=== PATIENT | female | born 2000 | race Caucasian/White ===

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

== ENCOUNTER 2020-09-01 14:30 | Emergency (ER) | payer MEDICAID ==
[~2020-09-01] VITALS: Ht 170.2 cm; Wt 69.5 kg
[2020-09-01 15:01] LABS: BASOPHILS % (AUTO) 0.4 % (0-1); EOSINOPHILS % (AUTO) 0.7 % (0-6); HEMATOCRIT 39.2 % (35.0-45.0); HEMOGLOBIN 13.3 g/dl (12.0-16.0); LYMPHOCYTES # (AUTO) 0.9 X10'3 (1.1-4.8); LYMPHOCYTES % (AUTO) 16.1 % (21-51); MEAN CORPUSCULAR HEMOGLOBIN 28.5 PG (27.0-31.0); MEAN CORPUSCULAR HGB CONC 33.9 g/dL (33.0-36.5); MEAN CORPUSCULAR VOLUME 84.1 FL (78-98); MONOCYTES # (AUTO) 0.3 X10'3 (0-0.9); MONOCYTES % (AUTO) 6.4 % (2-12); NEUTROPHILS # (AUTO) 4.2 X10'3 (1.8-7.7); NEUTROPHILS % (AUTO) 76.4 % (42-75); PLATELET COUNT 273 X10'3 (140-440); RED BLOOD COUNT 4.66 X10'6 (4.20-5.60); RED CELL DISTRIBUTION WIDTH 12.8 % (11.5-14.5); WHITE BLOOD COUNT 5.5 X10'3 (4.5-11.0)
[2020-09-01 15:23] LABS: ALANINE AMINOTRANSFERASE 24 U/L (12-78); ALBUMIN 3.9 G/DL (3.4-5.0); ALBUMIN/GLOBULIN RATIO 1.1 (1.1-1.5); ALKALINE PHOSPHATASE 56 IU/L (46-116); ANION GAP 10 (8-16); ASPARTATE AMINO TRANSFERASE 16 U/L (10-37); BILIRUBIN,TOTAL 0.3 MG/DL (0.1-1.0); BLOOD UREA NITROGEN 11 MG/DL (7-18); BUN/CREATININE RATIO 12.8 (6.6-38.0); CALCIUM 8.9 MG/DL (8.5-10.1); CHLORIDE 106 MMOL/L (99-107); CREATININE 0.86 MG/DL (0.40-0.90); GLUCOSE 113 MG/DL (70-104); POTASSIUM 3.8 MMOL/L (3.5-5.1); SODIUM 141 MMOL/L (135-145); TOTAL CARBON DIOXIDE 24.6 MMOL/L (24-32); TOTAL PROTEIN 7.6 G/DL (6.4-8.2); eGFR 83 ML/MIN
[2020-09-01 15:43] LABS: CLARITY,URINE SLIGHTLY CLOUDY (Clear); GLUCOSE, URINE NEGATIVE (Neg); KETONES,URINE 15 mg/dl (Neg); LEUKOCYTE ESTERASE ,URINE NEGATIVE (Neg); NITRITES, URINE NEGATIVE (Neg); OCCULT BLOOD,URINE NEGATIVE (Neg); PROTEIN,URINE NEGATIVE (Neg)
[2020-09-01 15:44] LABS: COLOR,URINE DARK YELLOW (Yellow); UA COLLECTION TYPE CLN CATCH MIDSTREAM
[2020-09-01 15:44] LABS: URINE HCG NEGATIVE (NEG)
[2020-09-01 15:48] LABS: WBC,URINE 0-4 /HPF (0-4)
[2020-09-01 15:49] LABS: BACTERIA,URINE 1+ /HPF (Neg); MUCUS STRANDS MODERATE /LPF (Neg); RBC,URINE 0-2 /HPF (0-2); SQUAMOUS EPITHELIAL CELL,UR MANY /LPF (FEW)
[2020-09-01 16:03] VITALS: BP 124/77
== END 2020-09-01 16:05 | disposition home or self-care (01) ==
LOC: ER 14:30
DX: R55 Syncope and collapse (principal); R42 Dizziness and giddiness; F41.9 Anxiety disorder, unspecified; F32.9 Major depressive disorder, single episode, unspecified
CPT/HCPCS: 36415; 80053; 81001; 81025; 85025; 93005; 99284

== ENCOUNTER 2021-06-22 09:36 | Emergency (ER) | payer MEDICAID ==
[~2021-06-22] VITALS: Ht 170.2 cm; Wt 72.7 kg
[2021-06-22] MEDS ORDERED: diphenhydrAMINE 25mg capsule PO ONE (11:50)
[2021-06-22 12:52] VITALS: BP 110/63
== END 2021-06-22 13:40 | disposition home or self-care (01) ==
LOC: ER 09:37
DX: T78.40XA Allergy, unspecified, initial encounter (principal); F41.9 Anxiety disorder, unspecified; F32.9 Major depressive disorder, single episode, unspecified; F12.10 Cannabis abuse, uncomplicated; Z88.8 Allergy status to other drugs, medicaments and biological substances
CPT/HCPCS: 93005; 99283; Q0163

== ENCOUNTER 2022-02-27 17:10 | Emergency (ER) | payer MEDICAID ==
[~2022-02-27] VITALS: Ht 170.2 cm; Wt 81.8 kg
[2022-02-27 18:29] VITALS: BP 119/73
[2022-02-27 19:27] LABS: URINE HCG NEGATIVE (NEG)
[2022-02-27 19:30] LABS: CLARITY,URINE SLIGHTLY CLOUDY (Clear); COLOR,URINE YELLOW (Yellow); GLUCOSE, URINE NEGATIVE (Neg); KETONES,URINE NEGATIVE (Neg); LEUKOCYTE ESTERASE ,URINE NEGATIVE (Neg); NITRITES, URINE NEGATIVE (Neg); OCCULT BLOOD,URINE TRACE-INTACT (Neg); PH,URINE 6.5 (4.8-8.0); PROTEIN,URINE NEGATIVE (Neg); UROBILINOGEN,URINE 0.2 E.U/dL (0.2-1.0)
[2022-02-27 19:35] LABS: UA COLLECTION TYPE CLN CATCH MIDSTREAM
[2022-02-27] MEDS ORDERED: meclizine 12.5mg tablet PO ONE (19:35)
[2022-02-27 19:44] LABS: BACTERIA,URINE 1+ /HPF (Neg); MUCUS STRANDS FEW /LPF (Neg); SQUAMOUS EPITHELIAL CELL,UR MANY /LPF (FEW); TRANSITIONAL EPI CELLS,URINE FEW /HPF
== END 2022-02-27 20:35 | disposition home or self-care (01) ==
LOC: ER 17:10
DX: R42 Dizziness and giddiness (principal); F31.9 Bipolar disorder, unspecified; F12.10 Cannabis abuse, uncomplicated; Z88.5 Allergy status to narcotic agent
CPT/HCPCS: 81001; 81025; 99283; J8597

== ENCOUNTER 2022-09-04 17:36 | Emergency (ER) | payer MEDICAID ==
[~2022-09-04] VITALS: Ht 170.2 cm; Wt 91.8 kg
[2022-09-04 18:09] VITALS: BP 125/82
[2022-09-04 18:39] LABS: COLOR,URINE YELLOW (Yellow); GLUCOSE, URINE NEGATIVE (Neg); KETONES,URINE NEGATIVE (Neg); LEUKOCYTE ESTERASE ,URINE NEGATIVE (Neg); NITRITES, URINE NEGATIVE (Neg); OCCULT BLOOD,URINE SMALL (Neg); PROTEIN,URINE NEGATIVE (Neg); UROBILINOGEN,URINE 0.2 E.U/dL (0.2-1.0)
[2022-09-04 18:41] LABS: URINE HCG NEGATIVE (NEG)
[2022-09-04 18:45] LABS: CLARITY,URINE SLIGHTLY CLOUDY (Clear); UA COLLECTION TYPE CLN CATCH MIDSTREAM
[2022-09-04 18:50] LABS: BACTERIA,URINE NONE SEEN /HPF (Neg); MUCUS STRANDS NONE SEEN /LPF (Neg); SQUAMOUS EPITHELIAL CELL,UR FEW /LPF (FEW); WBC,URINE 0-4 /HPF (0-4)
== END 2022-09-04 19:47 | disposition home or self-care (01) ==
LOC: ER 17:38
DX: R39.89 Other symptoms and signs involving the genitourinary system (principal); F12.90 Cannabis use, unspecified, uncomplicated; Z88.8 Allergy status to other drugs, medicaments and biological substances
CPT/HCPCS: 81001; 81025; 99283

== ENCOUNTER 2022-12-04 21:30 | Emergency (ER) | payer MEDICAID ==
[~2022-12-04] VITALS: Ht 170.2 cm; Wt 90.0 kg
[2022-12-04 21:37] VITALS: TEMP 98
[2022-12-04] MEDS ORDERED: dexamethasone sod phosphate 10mg/ml inj PO STA (21:46)
[2022-12-04] MEDS ORDERED: diphenhydrAMINE 25mg capsule PO STA (21:46)
[2022-12-04] MEDS ORDERED: diphenhydrAMINE 25 MG/10 ML UD oral solution PO ONE (22:25)
[2022-12-04] MEDS ORDERED: famotidine 20mg tablet PO ONE (22:25)
[2022-12-04] MEDS ORDERED: epiNEPHrine 1 mg/ml inj SQ ONE (22:45)
--- NOTE | 2022-12-04 22:48 | NUR ---
rash is spreading, hives to lower back now. Moved pt to room 15 on monitors, Corine Fontaine RN SBAR
[2022-12-04 22:55] VITALS: BP 102/60; PULSE 68; RESP 18; O2SAT 98
--- NOTE | 2022-12-04 23:21 | NUR ---
ERRYTHEMA AND URTICARIA DECREASED POST EPINEPHRINE.
[2022-12-04] MEDS ORDERED: DIPH25CA83 PO (23:36)
[2022-12-04] MEDS ORDERED: FAMO-128 PO (23:36)
[2022-12-04] MEDS ORDERED: PRED20TA PO (23:36)
== END 2022-12-04 23:59 | disposition home or self-care (01) ==
LOC: ER 21:30
DX: T78.2XXA Anaphylactic shock, unspecified, initial encounter (principal); L50.8 Other urticaria; Z41.9 Encounter for procedure for purposes other than remedying health state, unspecified; F12.90 Cannabis use, unspecified, uncomplicated; Z72.89 Other problems related to lifestyle; Z88.8 Allergy status to other drugs, medicaments and biological substances; Z79.899 Other long term (current) drug therapy
CPT/HCPCS: 96372; 99291; J0171; J1100; Q0163; 99284

== ENCOUNTER 2022-12-05 13:31 | Emergency (ER) | payer MEDICAID ==
[~2022-12-05] VITALS: Ht 170.2 cm; Wt 90.0 kg
[~2022-12-05 13:31] MED LIST changes: +DIPH25CA83 PO; +FAMO-128 PO; +PRED20TA PO
[2022-12-05] MEDS ORDERED: diphenhydrAMINE 50 mg/ml inj IV ONE (14:15)
[2022-12-05] MEDS ORDERED: methylPREDNISolone sod succ 125mg/2ml vial IV ONE (14:15)
[2022-12-05] MEDS ORDERED: epiNEPHrine 1 mg/ml inj SQ STA (14:15)
[2022-12-05] MEDS ORDERED: normal saline 1000ML IV soln IVB ONE (14:15)
[2022-12-05] MEDS ORDERED: famotidine/PF 10 mg/ml inj IV ONE (14:15)
--- NOTE | 2022-12-05 14:18 | NUR ---
pt returned to ed c/o same s/s rash bilateral cheeks L eye lid diffuse areas on back under R arm pit L breast onset approx 1300 today endorses she has not taken any medications drank pumpkin latte at 8am today. denies sob no wheezing noted pt able to speak in full sentences can control her own secretions
[2022-12-05 15:23] VITALS: BP 112/60; PULSE 66; RESP 14; TEMP 97.6; O2SAT 100
== END 2022-12-05 15:26 | disposition home or self-care (01) ==
LOC: ER 13:31
DX: L25.8 Unspecified contact dermatitis due to other agents (principal); T38.4X5A Adverse effect of oral contraceptives, initial encounter; Y92.89 Other specified places as the place of occurrence of the external cause; F12.90 Cannabis use, unspecified, uncomplicated; Z72.89 Other problems related to lifestyle; Z88.8 Allergy status to other drugs, medicaments and biological substances; Z79.899 Other long term (current) drug therapy
CPT/HCPCS: 96361; 96372; 96374; 96375; 99284; J0171; J1200; J2930; J3490; J7030

== ENCOUNTER 2022-12-07 09:27 | Emergency (ER) | payer MEDICAID ==
[~2022-12-07] VITALS: Ht 170.2 cm; Wt 80.6 kg
[2022-12-07 09:31] VITALS: BP 107/63; PULSE 67; RESP 14; TEMP 97; O2SAT 98
== END 2022-12-07 11:31 | disposition home or self-care (01) ==
LOC: ER 09:27
DX: L50.9 Urticaria, unspecified (principal); F12.90 Cannabis use, unspecified, uncomplicated; Z88.8 Allergy status to other drugs, medicaments and biological substances; Z79.899 Other long term (current) drug therapy
CPT/HCPCS: 99281